=== PATIENT | female | born 1990 | race Hispanic/Latino ===

== ENCOUNTER 2018-05-14 03:57 | Emergency (ER) | payer OTHER ==
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
[2018-05-14 07:03] VITALS: BP 123/63; PULSE 92; RESP 16; TEMP 98; O2SAT 99
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
== END 2018-05-14 06:56 | disposition home or self-care (01) ==
LOC: H.ER 03:57
DX: S09.90XA Unspecified injury of head, initial encounter (principal); V89.2XXA Person injured in unspecified motor-vehicle accident, traffic, initial encounter